=== PATIENT | female | born 1925 | race Caucasian/White ===

== ENCOUNTER 2016-10-17 06:57 | Inpatient (IN) | payer MEDICARE, BC ==
[~2016-10-17 06:57] MED LIST: ALEVE220 M3 PO; CENTRUM SILVER1 EAC6 PO; COZAAR50 M1 PO; FISH OIL 1,4001 EAC1 PO; KLONOPIN0.5 M1 PO; ULTRAM50 M1 PO
[2016-10-17 07:40] LABS: INR 0.9 INR (0.9-1.1); PROTHROMBIN TIME 10.6 SECONDS (9.0-13.6)
[2016-10-18 06:08] LABS: BASO % 0.1 % (0-2); EOS % 0.3 % (0-7); HCT-HEMATOCRIT 31.7 % (34.0-49.0); HGB-HEMOGLOBIN 10.3 gm/dl (12.0-15.5); IMMATURE GRANULOCYTES ABSOLUTE 0.01 tho/cmm (0-0.03); IMMATURE GRANULOCYTES PERCENT 0.1 % (0-0.3); LYMPH % 24.4 % (20-45); LYMPH ABSOLUTE COUNT 2.3 tho/cmm (0.8-4.5); MCH (MEAN CORPUSCULAR HGB) 30.1 pg (28.0-32.0); MCHC MEAN CORPUSCULAR HGB CONC 32.5 % (32.0-36.0); MCV (MEAN CELL VOLUME) 92.7 fl (82.0-96.0); MEAN PLATELET VOLUME 10.5 cmc (9.4-12.4); MONO % 8.1 % (0-12); MONOCYTE ABSOLUTE COUNT 0.8 tho/cmm (0.0-1.2); NEUTROPHIL ABSOLUTE COUNT 6.4 tho/cmm (1.6-8.0); NEUTROPHIL-AUTOMATED 6.4 tho/cmm (1.6-8.0); PLATELET COUNT 170 tho/cmm (150-450); RED BLOOD COUNT 3.42 mil/cmm (4.00-5.20); WHITE BLOOD COUNT 9.6 tho/cmm (4.0-10.0)
[2016-10-20] MEDS ORDERED: ROXICODONE5 M2 PO (12:35)
[2016-10-20] MEDS ORDERED: ASPIRIN325 M3 PO (12:36)
[2016-10-20] MEDS ORDERED: TYLENOL325 M2 PO (12:37)
== END 2016-10-20 13:30 | DRG 470 ==
LOC: SHSB 06:57 → ORE 09:25 → PACU 12:03 → 5EA 14:40
PROVIDERS: ADMIT Orthopaedic Surgery Sports Medicine
PROC: 0SRB029 Replacement of Left Hip Joint with Metal on Polyethylene Synthetic Substitute, Cemented, Open Approach (ICD-10-PCS; principal; 2016-10-17)
DX: M16.12 Unilateral primary osteoarthritis, left hip (principal); I35.0 Nonrheumatic aortic (valve) stenosis; G54.0 Brachial plexus disorders; Z98.890 Other specified postprocedural states; I10 Essential (primary) hypertension; M15.9 Polyosteoarthritis, unspecified; Z86.718 Personal history of other venous thrombosis and embolism; G47.00 Insomnia, unspecified
CPT/HCPCS: C1713; C1776; J0171; J0690; J1170; J1885; J2270; J2405; J2795; J7030